=== PATIENT | female | born 1985 | race Caucasian/White ===

== ENCOUNTER 2017-02-13 10:04 | Emergency (ER) | payer BC, OTHER ==
[2017-02-13] MEDS ORDERED: ONDANSETRON ODT 4 MG TAB PO STA (11:11)
[2017-02-13] MEDS ORDERED: HYDROmorphone 1 MG/ML 1 ML SYRINGE IM STA (11:11)
--- NOTE | 2017-02-13 11:31 | ED ---
General Adult HPI - General Chief complaint: Extremity Problem,Nontraumatic Stated complaint: Hx SCIATICA, STILL HAVING BACK PAIN Time Seen by Provider: 02/13/17 10:32 Source: patient, RN notes reviewed Mode of arrival: ambulatory Limitations: no limitations - History of Present Illness Initial comments: Patient is a 31-year-old female who presents emergency room today with chief complaint of increased back pain. She does admit that over the last 3 weeks she 's been experiencing some sciatic type pain. She states that at times it goes down the left leg and also the right leg to approximately the behind the knee. She states that yesterday he began having increased pain after going to the chiropractor. She states that she's felt pain going all the way down to the right foot. She states it's difficult to ambulate due to pain in the right leg. Patient also admits that when she sits she feels a lot of pain in her tailbone. Patient denies any bowel or bladder incontinence or retention. She denies any saddle anesthesia. Patient denies any other complaints. Patient denies any recent fever, chills, shortness of breath, chest pain, abdominal pain , nausea or vomiting, dysuria or hematuria, constipation or diarrhea, headaches or visual changes, or any other complaints. - Related Data Home Medications Medication Instructions Recorded Confirmed DULoxetine HCL [Cymbalta] 30 mg PO HS 02/13/17 02/13/17 Diazepam [Valium] 10 mg PO BID PRN 02/13/17 02/13/17 HYDROcodone/APAP 7.5-325MG [[place] 1 tab PO DAILY PRN 02/13/17 02/13/17 7.5-325] Ketorolac [Toradol] 30 mg IM ONCE PRN 02/13/17 02/13/17 Pantoprazole Sodium [Protonix] 20 mg PO HS 02/13/17 02/13/17 Previous Rx's Medication Instructions Recorded Dexamethasone 0.75 mg PO DIRECTED #12 tablet 02/13/17 Hydrocodone/Acetaminophen [[place] 1 each PO Q6HR PRN #20 tab 02/13/17 5-325] Allergies Allergy/AdvReac Type Severity Reaction Status Date / Time amoxicillin Allergy Rash/Hives Verified 02/13/17 11:04 doxycycline Allergy Nausea & Verified 02/13/17 11:04 Vomiting lamotrigine [From Lamictal] Allergy Rash/Hives Verified 02/13/17 11:04 Review of Systems ROS Statement: Those systems with pertinent positive or pertinent negative responses have been documented in the HPI. ROS Other: All systems not noted in ROS Statement are negative. Past Medical History Additional Past Medical History / Comment(s): PCOS History of Any Multi-Drug Resistant Organisms: None Reported Past Surgical History: Bariatric Surgery, Breast Surgery, Cholecystectomy Additional Past Surgical History / Comment(s): ARM AND BREAST PLASTIC SURGERY. LAP BAND CONVERTED TO SLEEVE 06/17 WITH HIATAL HERNIA REPAIR, Past Anesthesia/Blood Transfusion Reactions: No Reported Reaction Past Psychological History: Anxiety, Depression Smoking Status: Never smoker Past Alcohol Use History: None Reported Past Drug Use History: None Reported General Exam - General Exam Comments Initial Comments: General: The patient is awake and alert, in no distress, and does not appear acutely ill. Eye: Pupils are equal, round and reactive to light, extra-ocular movements are intact. No nystagmus. There is normal conjunctiva bilaterally. No signs of icterus. Ears, nose, mouth and throat: There are moist mucous membranes and no oral lesions. Neck: The neck is supple, there is no tenderness or JVD. Cardiovascular: There is a regular rate and rhythm. No murmur, rub or gallop is appreciated. Respiratory: Lungs are clear to auscultation, respirations are non-labored, breath sounds are equal. No wheezes, stridor, rales, or rhonchi. Gastrointestinal: Soft, non-distended, non-tender abdomen without masses or organomegaly noted. There is no rebound or guarding present. No CVA tenderness. Bowel sounds are unremarkable. Musculoskeletal: Normal ROM, no tenderness. Strength 5/5. Sensation intact. Pulses equal bilaterally 2+. Neurological: A&O x 3. CN II-XII intact, There are no obvious motor or sensory deficits. Coordination appears grossly intact. Speech is normal. Skin: Skin is warm and dry and no rashes or lesions are noted. Psychiatric: Cooperative, appropriate mood & affect, normal judgment. : [employer] Luna present for exam. Patient has normal rectal tone. Sensation intact. Limitations: no limitations Course Vital Signs 02/13/17 10:06 Temperature 97.8 F Pulse Rate 117 H Respiratory 18 Rate Blood Pressure 141/81 O2 Sat by Pulse 100 Oximetry Medical Decision Making - Medical Decision Making Patient's CT of the lumbar spine reviewed shows 1. Mild to moderate central canal compromise at L4-L5. 2. Broad based central disc protrusion at L5-S1. Case discussed in detail with attending physician Dr. Woody. Patient reexamined at this time shows no signs of distress resting comfortably. Patient has good rectal tone. No saddle anesthesia. Patient is advised to follow-up family doctor for further evaluation and MRI tomorrow with family doctor. Patient will be given pain medication of [place]. She has an ALLERGY to ibuprofen. She will be given dexamethasone as well for her symptoms. Disposition Clinical Impression: Lumbar herniated disc Disposition: HOME SELF-CARE Condition: Good Instructions: Lumbar Disc Herniation (ED) Additional Instructions: Please use medication as discussed. Please follow-up with family doctor tomorrow and discuss options of MRI. Please return to emergency room if the symptoms increase or worsen or for any other concerns. Prescriptions: Dexamethasone 0.75 mg PO DIRECTED #12 tablet Hydrocodone/Acetaminophen [[place] 5-325] 1 each PO Q6HR PRN #20 tab PRN Reason: Pain Referrals: Nonstaff,Physician [Primary Care Provider] - 1-2 days Time of Disposition: 12:37
[2017-02-13] MEDS ORDERED: KETOROLAC 60 MG/2 ML VIAL IM STA (12:04)
--- NOTE | 2017-02-13 12:13 | CT ---
EXAMINATION TYPE: CT lumbar spine wo con DATE OF EXAM: 02/13/2017 11:48 AM COMPARISON: NONE HISTORY: Back pain following manipulation. CT DLP: 673.00 mGycm Automated exposure control for dose reduction was used. Unenhanced CT of the lumbar spine was performed. Bone and soft tissue window settings are submitted as well as coronal and sagittal reconstructions. FINDINGS: Visualized portions of the lungs are clear. Paraspinal soft tissues are normal. At T12-L1 and L1-2, no definite abnormality is seen. At L2-3: The intervertebral foramina are well maintained. There is no significant compressive discopa thy. The facets are unremarkable. At L3-4:: The intervertebral foramina appear well maintained. There is a diffuse disc displacement. T he facets are unremarkable. At L4-5:: Is mild disc space loss. There is a diffuse disc displacement. Intervertebral foramina are well maintained. There is mild to moderate central canal stenosis. At L5-S1: There is disc space loss. Intervertebral foramina appear well maintained. There is a centra l disc protrusion. This may be abutting the traversing S1 nerve roots bilaterally. IMPRESSION: 1. MILD TO MODERATE CENTRAL CANAL COMPROMISE, L4-5. 2. BROAD-BASED CENTRAL DISC PROTRUSION, L5-S1. THIS MAY BE ABUTTING THE TRAVERSING S1 NERVE ROOTS.
[2017-02-13 12:54] VITALS: BP 121/62; PULSE 83; RESP 16; TEMP 97
== END 2017-02-13 12:54 | disposition home or self-care (01) ==
LOC: EC 10:04
DX: M51.26 Other intervertebral disc displacement, lumbar region (principal); F32.9 Major depressive disorder, single episode, unspecified; D41.9 Neoplasm of uncertain behavior of unspecified urinary organ; Z79.899 Other long term (current) drug therapy; Z88.0 Allergy status to penicillin; Z88.1 Allergy status to other antibiotic agents; Z88.8 Allergy status to other drugs, medicaments and biological substances
CPT/HCPCS: 72131; 99284; 96372 ×2; J1885; J1170

== ENCOUNTER 2019-04-11 08:56 | Emergency (ER) | payer OTHER ==
--- NOTE | 2019-04-11 10:19 | ED ---
Abdominal Pain HPI - General Chief Complaint: Abdominal Pain Stated Complaint: 1wk post miscarriage, bleeding Time Seen by Provider: 04/11/19 09:34 Source: patient, RN notes reviewed Mode of arrival: ambulatory Limitations: no limitations - History of Present Illness Initial Comments: 33-year-old female presents emergency Department chief complaint of vaginal bleeding. Patient states she had a miscarriage approximately one week ago. She hasn't stopped bleeding but states that she had increasing bleeding today. She has some mild cramping. She was also follow-up next week for recheck with her [employer]. Patient is A1. She did state that she is only approximately 7 weeks along she believes that she did pass something. She has no complaints of dysuria she was recently treated with azithromycin for chlamydia. Patient denies any fevers chills chest pain or shortness breath. - Related Data Home Medications Medication Instructions Recorded Confirmed DULoxetine HCL [Cymbalta] 30 mg PO HS 02/13/17 02/13/17 Diazepam [Valium] 10 mg PO BID PRN 02/13/17 02/13/17 HYDROcodone/APAP 7.5-325MG [[place] 1 tab PO DAILY PRN 02/13/17 02/13/17 7.5-325] Ketorolac [Toradol] 30 mg IM ONCE PRN 02/13/17 02/13/17 Pantoprazole Sodium [Protonix] 20 mg PO HS 02/13/17 02/13/17 Previous Rx's Medication Instructions Recorded Dexamethasone 0.75 mg PO DIRECTED #12 tablet 02/13/17 Hydrocodone/Acetaminophen [[place] 1 each PO Q6HR PRN #20 tab 02/13/17 5-325] Allergies Allergy/AdvReac Type Severity Reaction Status Date / Time amoxicillin Allergy Rash/Hives Verified 02/13/17 11:04 doxycycline Allergy Nausea & Verified 02/13/17 11:04 Vomiting lamotrigine [From Lamictal] Allergy Rash/Hives Verified 02/13/17 11:04 Review of Systems ROS Statement: Those systems with pertinent positive or pertinent negative responses have been documented in the HPI. ROS Other: All systems not noted in ROS Statement are negative. Past Medical History Additional Past Medical History / Comment(s): PCOS History of Any Multi-Drug Resistant Organisms: None Reported Past Surgical History: Bariatric Surgery, Breast Surgery, Cholecystectomy Additional Past Surgical History / Comment(s): ARM AND BREAST PLASTIC SURGERY. LAP BAND CONVERTED TO SLEEVE 06/17 WITH HIATAL HERNIA REPAIR, Past Anesthesia/Blood Transfusion Reactions: No Reported Reaction Past Psychological History: Anxiety, Depression Smoking Status: Never smoker Past Alcohol Use History: None Reported Past Drug Use History: None Reported General Exam Limitations: no limitations General appearance: alert, in no apparent distress Head exam: Present: atraumatic, normocephalic, normal inspection Eye exam: Present: normal appearance, PERRL, EOMI. Absent: scleral icterus, conjunctival injection, periorbital swelling Respiratory exam: Present: normal lung sounds bilaterally. Absent: respiratory distress, wheezes, rales, rhonchi, stridor Cardiovascular Exam: Present: regular rate, normal rhythm, normal heart sounds. Absent: systolic murmur, diastolic murmur, rubs, gallop, clicks GI/Abdominal exam: Present: soft, normal bowel sounds. Absent: distended, tenderness, guarding, rebound, rigid Back exam: Absent: CVA tenderness (R), CVA tenderness (L) Neurological exam: Present: alert Skin exam: Present: warm, dry, intact, normal color. Absent: rash Course Vital Signs 04/11/19 09:09 Temperature 97.6 F Pulse Rate 83 Respiratory 21 Rate Blood Pressure 129/85 O2 Sat by Pulse 100 Oximetry Medical Decision Making - Medical Decision Making Patient presented for vaginal bleeding and had a miscarriage. She did have some increased bleeding though this is subsiding. Ultrasound shows an endometrium and concern for possible retained products. Patient is O+ blood type does not require RhoGAM. Patient refuses pelvic exam this time. Case discussed by Dr. Leung with Dr. Padilla will follow-up with the patient in office. Patient is to call today for an appointment. - Lab Data Result diagrams: 04/11/19 09:35 04/11/19 09:35 Lab Results 04/11/19 04/11/19 04/11/19 Range/Units 09:35 09:35 09:35 WBC 12.8 H (3.8-10.6) k/uL RBC 4.13 (3.80-5.40) m/uL Hgb 11.4 (11.4-16.0) gm/dL Hct 34.7 (34.0-46.0) % MCV 83.9 (80.0-100.0) fL MCH 27.5 (25.0-35.0) pg MCHC 32.8 (31.0-37.0) g/dL RDW 12.5 (11.5-15.5) % Plt Count 351 (150-450) k/uL Neutrophils % 61 % Lymphocytes % 32 % Monocytes % 4 % Eosinophils % 1 % Basophils % 0 % Neutrophils # 7.9 H (1.3-7.7) k/uL Lymphocytes # 4.1 (1.0-4.8) k/uL Monocytes # 0.5 (0-1.0) k/uL Eosinophils # 0.1 (0-0.7) k/uL Basophils # 0.0 (0-0.2) k/uL Sodium 138 (137-145) mmol/L Potassium 4.1 (3.5-5.1) mmol/L Chloride 108 H (98-107) mmol/L Carbon Dioxide 23 (22-30) mmol/L Anion Gap 7 mmol/L BUN 24 H (7-17) mg/dL Creatinine 0.84 (0.52-1.04) mg/dL Est GFR (CKD-EPI)AfAm >90 (>60 ml/min/1.73 sqM) Est GFR (CKD-EPI)NonAf >90 (>60 ml/min/1.73 sqM) Glucose 94 (74-99) mg/dL Calcium 8.9 (8.4-10.2) mg/dL HCG, Quant 5717.9 mIU/mL Urine Color Yellow Urine Appearance Turbid H (Clear) Urine pH 5.5 (5.0-8.0) Ur Specific [place] 1.032 (1.001-1.035) Urine Protein Trace H (Negative) Urine Glucose (UA) Negative (Negative) Urine Ketones Negative (Negative) Urine Blood Large H (Negative) Urine Nitrite Negative (Negative) Urine Bilirubin Negative (Negative) Urine Urobilinogen 2.0 (<2.0) mg/dL Ur Leukocyte Esterase Trace H (Negative) Urine RBC >182 H (0-5) /hpf Urine WBC 3 (0-5) /hpf Ur Squamous Epith Cells 3 (0-4) /hpf Calcium Oxalate Crystal Many H (None) /hpf Amorphous Sediment Rare H (None) /hpf Urine Mucus Many H (None) /hpf Blood Type Blood Type Recheck Bld Type Recheck Status 04/11/19 Range/Units 09:38 WBC (3.8-10.6) k/uL RBC (3.80-5.40) m/uL Hgb (11.4-16.0) gm/dL Hct (34.0-46.0) % MCV (80.0-100.0) fL MCH (25.0-35.0) pg MCHC (31.0-37.0) g/dL RDW (11.5-15.5) % Plt Count (150-450) k/uL Neutrophils % % Lymphocytes % % Monocytes % % Eosinophils % % Basophils % % Neutrophils # (1.3-7.7) k/uL Lymphocytes # (1.0-4.8) k/uL Monocytes # (0-1.0) k/uL Eosinophils # (0-0.7) k/uL Basophils # (0-0.2) k/uL Sodium (137-145) mmol/L Potassium (3.5-5.1) mmol/L Chloride (98-107) mmol/L Carbon Dioxide (22-30) mmol/L Anion Gap mmol/L BUN (7-17) mg/dL Creatinine (0.52-1.04) mg/dL Est GFR (CKD-EPI)AfAm (>60 ml/min/1.73 sqM) Est GFR (CKD-EPI)NonAf (>60 ml/min/1.73 sqM) Glucose (74-99) mg/dL Calcium (8.4-10.2) mg/dL HCG, Quant mIU/mL Urine Color Urine Appearance (Clear) Urine pH (5.0-8.0) Ur Specific [place] (1.001-1.035) Urine Protein (Negative) Urine Glucose (UA) (Negative) Urine Ketones (Negative) Urine Blood (Negative) Urine Nitrite (Negative) Urine Bilirubin (Negative) Urine Urobilinogen (<2.0) mg/dL Ur Leukocyte Esterase (Negative) Urine RBC (0-5) /hpf Urine WBC (0-5) /hpf Ur Squamous Epith Cells (0-4) /hpf Calcium Oxalate Crystal (None) /hpf Amorphous Sediment (None) /hpf Urine Mucus (None) /hpf Blood Type O Positive Blood Type Recheck No Previous Record Bld Type Recheck Status [facility] ONLY Disposition Clinical Impression: Miscarriage Disposition: HOME SELF-CARE Condition: Stable Instructions (If sedation given, give patient instructions): Miscarriage (ED) Additional Instructions: Please return to the Emergency Department if symptoms worsen or any other concerns. Is patient prescribed a controlled substance at d/c from ED?: No Referrals: Jaden Peterson DO [Primary Care Provider] - 1-2 days Nohemi Paidlla MD [STAFF PHYSICIAN] - 1-2 days Time of Disposition: 12:25
[2019-04-11 10:37] LABS: Basophils % (A) 0 %; Eosinophils # (A) 0.1 k/uL (0-0.7); Eosinophils % (A) 1 %; HCT 34.7 % (34.0-46.0); HGB 11.4 gm/dL (11.4-16.0); Lymphocytes # (A) 4.1 k/uL (1.0-4.8); Lymphocytes % (A) 32 %; MCH 27.5 pg (25.0-35.0); MCHC 32.8 g/dL (31.0-37.0); MCV 83.9 fL (80.0-100.0); Mean Platelet Volume 7.2; Monocytes # (A) 0.5 k/uL (0-1.0); Monocytes % (A) 4 %; Neutrophils # (A) 7.9 k/uL (1.3-7.7); Neutrophils % (A) 61 %; Platelet Count 351 k/uL (150-450); RBC 4.13 m/uL (3.80-5.40); RDW 12.5 % (11.5-15.5); WBC 12.8 k/uL (3.8-10.6)
--- NOTE | 2019-04-11 10:43 | US ---
EXAMINATION TYPE: US transvaginal DATE OF EXAM: 04/11/2019 COMPARISON: NONE CLINICAL HISTORY: bleeding, recent miscarriage. Miscarriage 04/04/19. Heavy vaginal bleeding for 1 we ek with clots starting last night. Cramping TECHNIQUE: Transvaginal (TV). Date of LMP: 02/08/19 EXAM MEASUREMENTS: Uterus: 10.0 x 5.1 x 7.3 cm Endometrial Stripe: 2.0 cm Right Ovary: 2.6 x 1.7 x 2.9 cm Left Ovary: unable to visualize 1. Uterus: Anteverted Nabothian cysts noted 2. Endometrium: thickened, heterogeneous, vascular - possible retained products 3. Right Ovary: appears wnl 4. Left Ovary: Obscured by overlying bowel gas Spectral, color and waveform doppler imaging shows good arterial and venous flow within the right o vary; there is no evidence for ovarian torsion. Evaluation of the left ovary was not performed by the technologist. 5. Bilateral Adnexa: appears wnl 6. Posterior cul-de-sac: wnl IMPRESSION: 1. The endometrium is thickened and heterogeneous measuring 2 cm. Retained products within the differ ential diagnosis correlate clinically. Other etiologies not excluded.
[2019-04-11 10:45] LABS: African American GFR (CKD) >90 (>60 ml/min/1.73 sqM); Anion Gap 7 mmol/L; Blood Urea Nitrogen 24 mg/dL (7-17); Calcium 8.9 mg/dL (8.4-10.2); Carbon Dioxide 23 mmol/L (22-30); Chloride 108 mmol/L (98-107); Glucose 94 mg/dL (74-99); Non-African American GFR(CKD) >90 (>60 ml/min/1.73 sqM); Potassium 4.1 mmol/L (3.5-5.1); Sodium 138 mmol/L (137-145)
[2019-04-11 10:51] LABS: Amorphous Sediment,Urine Rare /hpf; Appearance,Urine Turbid (Clear); Bilirubin,Urine Negative (Negative); Blood,Urine Large (Negative); Calcium Oxalate Crystals,Urine Many /hpf; Color,Urine Yellow; Glucose,Urine (UA) Negative (Negative); Ketones,Urine Negative (Negative); Leukocyte Esterase,Urine Trace (Negative); Mucus,Urine Many /hpf; Nitrite,Urine Negative (Negative); PH, Urine 5.5 (5.0-8.0); Protein,Urine Trace (Negative); RBC,Urine >182 /hpf (0-5); Specific Gravity,Urine 1.032 (1.001-1.035); Squamous Epithelial Cell,Urine 3 /hpf (0-4); WBC,Urine 3 /hpf (0-5)
[2019-04-11 11:01] LABS: HCG,Quantitative Serum 5717.9 mIU/mL
[2019-04-11 12:42] VITALS: BP 117/67; PULSE 76; RESP 18; TEMP 98
== END 2019-04-11 12:43 | disposition home or self-care (01) ==
LOC: EC 08:56
DX: O03.9 Complete or unspecified spontaneous abortion without complication (principal); Z67.40 Type O blood, Rh positive; F32.9 Major depressive disorder, single episode, unspecified; F41.9 Anxiety disorder, unspecified; Z88.0 Allergy status to penicillin; Z88.1 Allergy status to other antibiotic agents; Z88.8 Allergy status to other drugs, medicaments and biological substances; Z79.899 Other long term (current) drug therapy; Z53.20 Procedure and treatment not carried out because of patient's decision for unspecified reasons
CPT/HCPCS: 36415; 76830; 80048; 81001; 84702; 85025; 86900; 86901; 93976; 99284